=== PATIENT | male | born 1975 | race Hispanic/Latino ===

== ENCOUNTER 2022-07-29 10:30 | Emergency (ER) | payer BC, OTHER ==
--- NOTE | 2022-07-29 11:40 | RAD REPORT ---
EXAM DESCRIPTION: RAD - Chest Single View - 07/29/2022 11:34 am CLINICAL HISTORY: wt loss COMPARISON: No comparisons FINDINGS: Lines: None. Lungs: No evidence of edema or pneumonia. Pleural: No significant pleural effusions or pneumothorax. Cardiac: The heart size is within normal limits. Mediastinum: Within normal limits. Bones: No acute fractures. Other: None IMPRESSION: No acute cardiopulmonary disease.
[2022-07-29 11:57] LABS: Absolute Lymphocytes (CBC) 2.2 K/uL (0.7-4.9); Hematocrit 43.2 % (39.6-49.0); Lymphocytes % 30.2 % (15.3-44.8)
[2022-07-29 11:58] LABS: Protime INR 1.05
[2022-07-29 12:20] LABS: Albumin 4.1 g/dL (3.4-5.0); Bilirubin Direct 0.2 mg/dL (0-0.2); Bilirubin Indirect, Calculated 0.4 mg/dL (0.2-0.8); Bilirubin Total 0.6 mg/dL (0.2-1.0); Magnesium 2.1 mg/dL (1.6-2.4); Potassium 4.1 mEq/L (3.5-5.1); Protein, Total 8.5 g/dL (6.4-8.2); Thyroid Stimulating Hormone 1.3 uIU/mL (0.358-3.740); Troponin High Sensitivity 5.4 pg/mL (<58.9)
[2022-07-29] MEDS ORDERED: ASPIRIN 81 MG CHEWABLE TABLET ONE (12:23)
[2022-07-29] MEDS ORDERED: DIAZEPAM 5 MG TABLET ONE (12:23)
--- NOTE | 2022-07-29 14:14 | RAD REPORT ---
EXAM DESCRIPTION: CT - Head Brain Wo Cont - 07/29/2022 1:31 pm CLINICAL HISTORY: MENTAL STATUS CHANGE COMPARISON: No comparisons TECHNIQUE: Noncontrast head CT images ad were obtained without IV contrast. Multiplanar reformats we re generated and reviewed. All CT scans are performed using dose optimization technique as appropriate and may include automated exposure control or mA/KV adjustment according to patient size. FINDINGS: No intracranial hemorrhage, mass, or edema. Midline structures are unremarkable. Normal ventricular caliber for age. Whittington-white matter differentiation is preserved, without evidence of acute infarct. No abnormal extra- axial fluid collections. Mastoid air cells and visualized portions of the paranasal sinuses are clear. No acute bony findings. IMPRESSION: No evidence of an acute intracranial process.
--- NOTE | 2022-07-29 14:25 | ER ---
Nurse's Notes [facility] Name: Eduardo Quevedo Jr Age: 47 yrs Sex: Male : 1975 Arrival Date: 07/29/2022 Time: 10:30 Bed 14 Private MD: Sylvester Dorsey W Diagnosis: Adjustment disorder with mixed anxiety and depressed mood Presentation: 07/29 10:44 Chief complaint: Brother states "he's been having a lot of panic attacks this month mb9 since the anniversary of his sons . He can't focus on anything right now and he's loopey. He hasn't been sleeping and barley eats. He has a high stress job and we think everything hit him at once.". Coronavirus screen: Vaccine status:. Coronavirus screen: Vaccine status: Patient reports receiving the 2nd dose of the covid vaccine. Ebola Screen: No symptoms or risks identified at this time. Initial Sepsis Screen: Does the patient meet any 2 criteria? No. Patient's initial sepsis screen is negative. Does the patient have a suspected source of infection? No. Patient's initial sepsis screen is negative. Risk Assessment: Do you want to hurt yourself or someone else? Patient reports no desire to harm self or others. Onset of symptoms was July 29, 2022. 10:44 Method Of Arrival: Ambulatory [facility] 10:44 Acuity: DAHIANA 3 mb9 Triage Assessment: 10:50 General: Appears in no apparent distress. Behavior is flat. Pain: Denies pain. Neuro: mb9 Level of Consciousness is awake, alert, obeys commands, Oriented to person, place, time, situation, Appropriate for age Speech is normal. Respiratory: Airway is patent Respiratory effort is even, unlabored, Respiratory pattern is regular, symmetrical. Derm: Skin is pink, warm \\T\\ dry. Musculoskeletal: Range of motion: intact in all extremities. Historical: - Allergies: 10:47 No Known Allergies; mb9 - Home Meds: 10:47 Metformin Oral [Active]; mb9 - PMHx: 10:47 Diabetes mellitus; mb9 - PSHx: 10:47 None; mb9 - Immunization history:: Adult Immunizations up to date. - Social history:: Smoking status: Patient denies any tobacco usage or history of. Screenin:34 [facility] ED Fall Risk Assessment (Adult) History of falling in the last 3 months, db including since admission No falls in past 3 months (0 pts). [facility] ED Fall Risk Assessment (Adult) Confusion or Disorientation Yes (5 pts) Intoxicated or Sedated No (0 pts) Impaired Gait No (0 pts) Mobility Assist Device Used No (0 pt) Altered Elimination No (0 pt) Score/Fall Risk Level 3 or more points = High Risk Oriented to surroundings, Maintained a safe environment, Educated pt \\T\\ family on fall prevention, incl call for assistance when getting out of bed. Abuse screen: Denies threats or abuse. Denies injuries from another. Nutritional screening: No deficits noted. Tuberculosis screening: No symptoms or risk factors identified. Assessment: 10:48 Reassessment: Pt denies any suicidal ideations or wanting to harm others. mb9 12:00 Reassessment: Patient appears in no apparent distress at this time. Patient and/or db family updated on plan of care and expected duration. Pain level reassessed. Patient is alert, oriented x 3, equal unlabored respirations, skin warm/dry/pink. 13:00 Reassessment: Patient appears in no apparent distress at this time. Patient and/or db family updated on plan of care and expected duration. Pain level reassessed. Patient is alert, oriented x 3, equal unlabored respirations, skin warm/dry/pink. 14:11 Reassessment: Patient appears in no apparent distress at this time. Patient and/or db family updated on plan of care and expected duration. Pain level reassessed. Patient is alert, oriented x 3, equal unlabored respirations, skin warm/dry/pink. Reassessment: PATIENT AMBULATORY TO RESTROOM. General: Appears in no apparent distress. comfortable, Behavior is calm, cooperative. Neuro: Level of Consciousness is awake, alert, obeys commands, Oriented to person, place, time. Respiratory: Airway is patent Respiratory effort is even, unlabored. 14:54 Reassessment: No changes from previously documented assessment. Patient and/or family db updated on plan of care and expected duration. Pain level reassessed. Patient is alert, oriented x 3, equal unlabored respirations, skin warm/dry/pink. Patient is alert/active/playful, equal unlabored respirations, skin warm/dry/pink. Patient states symptoms have improved. Vital Signs: 10:44 BP 162 / 103; Pulse 83; Resp 18; Temp 98.4; Pulse Ox 100% ; Weight 95.25 kg; Height 6 mb9 ft. 0 in. ; Pain 0/10; 12:15 BP 156 / 101; Pulse 86; Resp 16; Pulse Ox 99% on R/A; db 13:00 BP 150 / 76; Pulse 75; Resp 16; Pulse Ox 98% on R/A; db 14:00 BP 145 / 97; Pulse 78; Resp 18; Pulse Ox 98% on R/A; db 14:30 BP 144 / 92; Pulse 74; Resp 18; Pulse Ox 98% on R/A; db 10:44 Body Mass Index 28.48 (95.25 kg, 182.88 cm) mb9 10:44 Pain Scale: Adult mb9 Vitals: 12:15 Cardiac Rhythm Assessment Regular Sinus rhythm. db ED Course: 10:33 Patient arrived in ED. im 10:33 Sylvester Dorsey MD is Private Physician. im 10:34 Morena Cantu [facility]-C [facility]. snw 10:34 Alin Delacruz DO is Attending Physician. snw 10:47 Triage completed. mb9 10:48 Arm band placed on. mb9 11:34 XRAY Chest (1 view) In Process Unspecified. EDMS 11:47 Inserted saline lock: 22 gauge in right antecubital area, using aseptic technique. iw Blood collected. 12:07 Shannon Cast, RN is Primary Nurse. db 12:35 Patient has correct armband on for positive identification. Allergy band placed. Bed in db low position. Call light in reach. Side rails up X 1. 13:32 CT Head Brain wo Cont In Process Unspecified. EDMS 14:55 Client placed on continuous cardiac and pulse oximetry monitoring. NIBP monitoring db applied. Warm blanket given. 14:55 No provider procedures requiring assistance completed. IV discontinued, intact, db bleeding controlled, No redness/swelling at site. Administered Medications: 12:26 Drug: Aspirin PO Chewable Tablet 324 mg Route: PO; db 14:30 Follow up: Response: No adverse reaction db 14:57 Follow up: Response: No adverse reaction db 12:26 Drug: Diazepam PO 10 mg Route: PO; db 14:57 Follow up: Response: No adverse reaction db Medication: 10:50 VIS not applicable for this client. mb9 Outcome: 14:24 Discharge ordered by . heriberto 14:55 Discharged to home ambulatory, with family. db 14:55 Condition: stable 14:55 Discharge instructions given to patient, family, Instructed on discharge instructions, Prescriptions given X 1. 14:57 Patient left the ED. db Signatures: Dispatcher [employer] EDMS Morena Cantu, QUARRYING SPECIALIST-C QUARRYING SPECIALIST-Csnw Rosana Small RN RN iw Shannon Cast RN RN db Breneman, Mary Beth, RN RN mb9 Susannah Desir Corrections: (The following items were deleted from the chart) 10:48 10:47 Home Meds: Glimepiride Oral; mb9 mb9 10:49 10:44 Chief complaint: Brother states "he's been having a lot of panic attacks this mb9 month since his son pass away this month. He can't focus on anything right now and he's loopey. He hasn't been sleeping and barley eats" mb9
--- NOTE | 2022-07-29 14:26 | EDPHYS ---
Physician Documentation [facility] Name: Eduardo Quevedo Jr Age: 47 yrs Sex: Male : 1975 Arrival Date: 07/29/2022 Time: 10:30 Bed 14 Private MD: Sylvester Dorsey W ED Physician Alin Delacruz HPI: 07/29 10:56 This 47 yrs old Male presents to ER via Ambulatory with complaints of Anxiety. snw 10:56 The patient presents to the emergency department with depression, pt's Son many snw years ago the day after Father's Day. Pt has had multiple coworkers with poor outcomes of chronic disease recently. Pt is anxious, unable to sleep, distracted, and sad. Onset: The symptoms/episode began/occurred acutely. Past psychiatric history: none. Associated signs and symptoms: Pertinent positives; anxiety, depression, insomnia. not to this degree. The patient has not recently seen a physician. Historical: - Allergies: 10:47 No Known Allergies; mb9 - Home Meds: 10:47 Metformin Oral [Active]; mb9 - PMHx: 10:47 Diabetes mellitus; mb9 - PSHx: 10:47 None; mb9 - Immunization history:: Adult Immunizations up to date. - Social history:: Smoking status: Patient denies any tobacco usage or history of. ROS: 10:54 Eyes: Negative for injury, pain, redness, and discharge, ENT: Negative for injury, snw pain, and discharge, Neck: Negative for injury, pain, and swelling, Cardiovascular: Negative for chest pain, palpitations, and edema, Respiratory: Negative for shortness of breath, cough, wheezing, and pleuritic chest pain, Back: Negative for injury and pain, : Negative for injury, bleeding, discharge, and swelling, MS/Extremity: Negative for injury and deformity, Skin: Negative for injury, rash, and discoloration, Neuro: Negative for headache, weakness, numbness, tingling, and seizure. 10:54 Constitutional: Positive for malaise, poor PO intake, weight loss, insomnia, distracted, panicky, sad. 10:54 Abdomen/GI: Positive for weight loss. 10:54 Psych: Positive for anxiety, depression. Exam: 10:53 Constitutional: This is a well developed, well nourished patient who is awake, alert, snw but is sad Head/Face: Normocephalic, atraumatic. Eyes: Pupils equal round and reactive to light, extra-ocular motions intact. Lids and lashes normal. Conjunctiva and sclera are non-icteric and not injected. Cornea within normal limits. Periorbital areas with no swelling, redness, or edema. ENT: Nares patent. No nasal discharge, no septal abnormalities noted. Tympanic membranes are normal and external auditory canals are clear. Oropharynx with no redness, swelling, or masses, exudates, or evidence of obstruction, uvula midline. Mucous membranes moist. Neck: Trachea midline, no thyromegaly or masses palpated, and no cervical lymphadenopathy. Supple, full range of motion without nuchal rigidity, or vertebral point tenderness. No Meningismus. Chest/axilla: Normal chest wall appearance and motion. Nontender with no deformity. No lesions are appreciated. Cardiovascular: Regular rate and rhythm with a normal S1 and S2. No gallops, murmurs, or rubs. Normal PMI, no JVD. No pulse deficits. Respiratory: Lungs have equal breath sounds bilaterally, clear to auscultation and percussion. No rales, rhonchi or wheezes noted. No increased work of breathing, no retractions or nasal flaring. Abdomen/GI: Soft, non-tender, with normal bowel sounds. No distension or tympany. No guarding or rebound. No evidence of tenderness throughout. Back: No spinal tenderness. No costovertebral tenderness. Full range of motion. Skin: Warm, dry with normal turgor. Normal color with no rashes, no lesions, and no evidence of cellulitis. MS/ Extremity: Pulses equal, no cyanosis. Neurovascular intact. Full, normal range of motion. Neuro: Awake and alert, GCS 15, oriented to person, place, time, and situation. Cranial nerves II-XII grossly intact. Motor strength 5/5 in all extremities. Sensory grossly intact. Cerebellar exam normal. Normal gait. 10:53 Psych: Behavior/mood is pleasant, cooperative, depressed, Affect is flat, Oriented to person, place, time. Vital Signs: 10:44 BP 162 / 103; Pulse 83; Resp 18; Temp 98.4; Pulse Ox 100% ; Weight 95.25 kg; Height 6 mb9 ft. 0 in. ; Pain 0/10; 12:15 BP 156 / 101; Pulse 86; Resp 16; Pulse Ox 99% on R/A; db 13:00 BP 150 / 76; Pulse 75; Resp 16; Pulse Ox 98% on R/A; db 14:00 BP 145 / 97; Pulse 78; Resp 18; Pulse Ox 98% on R/A; db 14:30 BP 144 / 92; Pulse 74; Resp 18; Pulse Ox 98% on R/A; db 10:44 Body Mass Index 28.48 (95.25 kg, 182.88 cm) mb9 10:44 Pain Scale: Adult mb9 MDM: 10:42 Patient medically screened. snw 13:32 Counseling: I had a detailed discussion with the patient and/or guardian regarding: the snw historical points, exam findings, and any diagnostic results supporting the discharge/admit diagnosis, lab results, the need for outpatient follow up, to return to the emergency department if symptoms worsen or persist or if there are any questions or concerns that arise at home. ED course: Pt's Brother concerned for stroke, will CT pt's head. Discussed grief making One sick. Pt receptive. Family will monitor any medications pt might be discharged with for sleep.. 14:23 Differential diagnosis: depression, endocrine dysfunction. Data reviewed: vital signs, snw nurses notes, lab test result(s), EKG, radiologic studies. I considered the following discharge prescriptions or medication management in the emergency department Medications were administered in the Emergency Department. See MAR. Historians other than the Patient: Family Member: Brother and Spouse. Care significantly affected by the following chronic conditions: Diabetes. Response to treatment: the patient's symptoms have mildly improved after treatment. Special discussion: I have referred the patient to see his PCP for further evaluation of high blood pressure. Based on the history and exam findings, there is no indication for further emergent testing or inpatient evaluation. I discussed with the patient/guardian the need to see the psychiatrist for further evaluation of the symptoms. 07/29 10:53 Order name: Basic Metabolic Panel; Complete Time: 12:23 snw 07/29 10:53 Order name: CBC with Diff; Complete Time: 12:19 snw 07/29 10:53 Order name: LFT's; Complete Time: 12:23 snw 07/29 10:53 Order name: Magnesium; Complete Time: 12:23 snw 07/29 10:53 Order name: NT PRO-BNP; Complete Time: 12:23 snw 07/29 10:53 Order name: PT-INR; Complete Time: 12:19 snw 07/29 10:53 Order name: Troponin HS; Complete Time: 12:23 snw 07/29 10:53 Order name: TSH; Complete Time: 12:23 snw 07/29 10:53 Order name: XRAY Chest (1 view); Complete Time: 11:49 snw 07/29 13:20 Order name: CT Head Brain wo Cont; Complete Time: 14:17 snw 07/29 10:53 Order name: EKG; Complete Time: 10:53 snw 07/29 10:53 Order name: Cardiac monitoring; Complete Time: 12:33 snw 07/29 10:53 Order name: EKG - Nurse/Tech; Complete Time: 12:33 snw 07/29 10:53 Order name: IV Saline Lock; Complete Time: 11:48 snw 07/29 10:53 Order name: Labs collected and sent; Complete Time: 11:48 snw 07/29 10:53 Order name: O2 Per Protocol; Complete Time: 12:33 snw 07/29 10:53 Order name: O2 Sat Monitoring; Complete Time: 12:33 snw EC:30 Rate is 75 beats/min. Rhythm is regular. QRS Dolores is Normal. KS interval is normal. QRS snw interval is normal. QT interval is normal. Clinical impression: NSR w/ Non-specific ST/T Changes. Administered Medications: 12:26 Drug: Aspirin PO Chewable Tablet 324 mg Route: PO; db 14:30 Follow up: Response: No adverse reaction db 14:57 Follow up: Response: No adverse reaction db 12:26 Drug: Diazepam PO 10 mg Route: PO; db 14:57 Follow up: Response: No adverse reaction db Disposition: 17:41 Co-signature as Attending Physician, Alin LANDAVERDE was immediately available on-site ms3 in the Emergency Department for consultation in the care of the patient. Disposition Summary: 07/29/22 14:24 Discharge Ordered Location: Home snw Condition: Stable snw Diagnosis - Adjustment disorder with mixed anxiety and depressed mood snw Followup: snw - With: Emergency Department - When: As needed - Reason: Worsening of condition Followup: snw - With: Private Physician - When: 2 - 3 days - Reason: Recheck today's complaints, Continuance of care, Re-evaluation by your physician Discharge Instructions: - Discharge Summary Sheet snw - Adjustment Disorder, Adult snw - Complicated Grief snw - Supporting Someone With Depression snw - Managing Depression, Adult snw - Supporting Someone With Anxiety snw Forms: - Medication Reconciliation Form snw - Thank You Letter snw - Antibiotic Education snw - Prescription Opioid Use snw Prescriptions: - trazodone 50 mg Oral tablet - take 1 tablet by ORAL route every day at bedtime as needed for insomnia; 30 snw tablet; Refills: 0, Product Selection Permitted Signatures: Dispatcher [employer] EDMorena Oliver FNP-C FNP-Alin Holbrook DO DO ms3 Shannon Cast, RN RN Gabby Sarkar RN RN mb9 Corrections: (The following items were deleted from the chart) 10:48 10:47 Home Meds: Glimepiride Oral; mb9 mb9
[2022-07-29 15:11] VITALS: TEMP 98.4
[2022-07-29 15:23] VITALS: O2SAT 98
[2022-07-29 15:25] VITALS: BP 144/92
--- NOTE | 2022-07-30 13:48 | EKG ---
Test Date: 2022-07-29 Test Time: 12:25:01 [employer] Melter: GIANNA MEASUREMENT RESULTS: Intervals: Rate: 75 MA: 134 QRSD: 100 QT: 366 QTc: 408 [place]: P: 58 MA: 134 QRS: -38 T: 46 INTERPRETIVE STATEMENTS: Normal sinus rhythm Left axis deviation Abnormal ECG No previous ECG available for comparison Electronically Signed On 07-30-22 13:46:36 CDT by Gio Campbell
== END 2022-07-29 14:57 | disposition home or self-care (01) ==
LOC: ER 10:30
DX: F43.23 Adjustment disorder with mixed anxiety and depressed mood (principal); E11.9 Type 2 diabetes mellitus without complications
CPT/HCPCS: 36415; 70450; 71045; 80048; 80076; 83735; 83880; 84443; 84484; 85025; 85610; 93005; 99284

== ENCOUNTER 2022-07-31 11:16 | Emergency (ER) | payer BC ==
--- NOTE | 2022-07-31 12:08 | RAD REPORT ---
EXAM DESCRIPTION: CT - Head Brain Wo Cont - 07/31/2022 12:00 pm CLINICAL HISTORY: CONFUSED COMPARISON: Head Brain Wo Cont dated 07/29/2022 TECHNIQUE: All CT scans are performed using dose optimization technique as appropriate and may inclu de automated exposure control or mA/KV adjustment according to patient size. FINDINGS: No intracranial hemorrhage, hydrocephalus or extra-axial fluid collection.No areas of brai n edema or evidence of midline shift. The paranasal sinuses and mastoids are clear. The calvarium is intact. IMPRESSION: No acute intracranial abnormality.
[2022-07-31 12:45] LABS: Absolute Lymphocytes (CBC) 1.6 K/uL (0.7-4.9); Hematocrit 41.7 % (39.6-49.0); Lymphocytes % 28.3 % (15.3-44.8); MCV 87.1 fL (80-100); MPV 7.9 fL (7.6-11.3); RBC Red Blood Cell Count 4.79 M/uL (4.33-5.43)
[2022-07-31 12:54] LABS: Protime INR 1.03
[2022-07-31 13:13] LABS: ALT/SGPT 120 U/L (16-61); AST/SGOT 35 U/L (15-37); Albumin 3.9 g/dL (3.4-5.0); Alkaline Phosphatase 74 U/L (45-117); BUN Blood Urea Nitrogen 15 mg/dL (7-18); Bicarbonate 28 mEq/L (21-32); Bilirubin Direct 0.1 mg/dL (0-0.2); Bilirubin Indirect, Calculated 0.3 mg/dL (0.2-0.8); Bilirubin Total 0.4 mg/dL (0.2-1.0); Glomerular Filtration Rate 99 ml/min (=/>90); Glucose Level 122 mg/dL (74-106); Potassium 4.3 mEq/L (3.5-5.1); Sodium Level 137 mEq/L (136-145)
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
--- NOTE | 2022-07-31 13:28 | EDPHYS ---
Physician Documentation [facility] Name: Eduardo Quevedo Jr Age: 47 yrs Sex: Male : 1975 Arrival Date: 07/31/2022 Time: 11:16 Bed 14 Private MD: ED Physician Karl Cai HPI: 07/31 11:30 This 47 yrs old Male presents to ER via Unassigned with complaints of bs3 depressed mood, . 11:30 Patient seen several days ago for anxiety and depression brought in by EMS for bs3 worsening of symptoms patient reportedly tried to drown himself in a superficial pool and potentially try to grab his firearm his does not feel safe at this point taking him home there are multiple stressors going on in his life related to anniversaries of deaths as well as a first 's situation history is mostly provided by the patient's at bedside as the patient is not speaking. Historical: - Home Meds: 19:08 metformin 500 mg oral Tablet, Extended Release 24 hr [Active]; kr3 - PMHx: 11:45 diabetes mellitus; kr3 - Immunization history:: Adult Immunizations unknown. - Social history:: Smoking status: unknown. ROS: 11:30 Constitutional: Negative for fever, chills bs3 11:30 All other systems are negative. Exam: 11:30 Constitutional: This is a well developed, well nourished patient who is awake, alert, bs3 and in no acute distress. Head/Face: Normocephalic, atraumatic. Eyes: Pupils equal round and reactive to light, extra-ocular motions intact. Lids and lashes normal. ENT: mmm, no posterior phyarngeal erythema Neck: Trachea midline, no thyromegaly, no neck stiffness Chest/axilla: Normal chest wall appearance and motion. Nontender with no deformity. No lesions are appreciated. Cardiovascular: Regular rate and rhythm with a normal S1 and S2. symmetric pulses in upper extremities Respiratory: Lungs have equal breath sounds bilaterally, clear to auscultation, no respiratory distress Abdomen/GI: Soft, non-tender, no rebound or guarding MS/ Extremity: Pulses equal, no cyanosis. Neurovascular intact. Full, normal range of motion. Neuro: Awake and alert, GCS 15, oriented to person, place, time, and situation. Cranial nerves II-XII grossly intact. Motor strength 5/5 in all extremities. Sensory grossly intact. Psych: Paucity of speech, depressed mood Vital Signs: 11:45 BP 158 / 98; Pulse 77; Resp 18; Pulse Ox 100% on R/A; kr3 13:30 BP 168 / 78; Pulse 77; Resp 18; Pulse Ox 99% on R/A; kr3 MDM: 11:17 Patient medically screened. bs3 11:30 Differential diagnosis: acute psychotic break, depression, psychosis secondary to bs3 non-compliance. Data reviewed: vital signs, nurses notes. ED course: We will check labs will get CT brain given no history although he has multiple risk factors for depression given his potential attempt in a shallow pool and potentially trying to grab a gun he is not safe to be discharged home. 13:26 ED course: Patient is insured he is willing to go voluntarily discussed with family at bs3 bedside admitted given lack of capacity here to take care of psychiatric patients to Dr. Sadler. 07/31 11:19 Order name: Acetaminophen [facility] 07/31 11:19 Order name: Basic Metabolic Panel [facility] 07/31 11:19 Order name: CBC with Diff 3 07/31 11:19 Order name: ETOH Level [facility] 07/31 11:19 Order name: Hepatic Function [facility] 07/31 11:19 Order name: PT-INR [facility] 07/31 11:19 Order name: Ptt, Activated [facility] 07/31 11:19 Order name: Salicylate [facility] 07/31 11:19 Order name: Urine Drug Screen [facility] 07/31 11:29 Order name: CT Head Brain wo Cont; Complete Time: 12:09 [facility] 07/31 11:19 Order name: EKG; Complete Time: 11:19 3 07/31 11:19 Order name: EKG - Nurse/Tech; Complete Time: 12:39 3 07/31 11:19 Order name: IV Saline Lock; Complete Time: 12:39 3 07/31 11:19 Order name: Labs collected and sent; Complete Time: 12:39 3 07/31 11:19 Order name: Suicide Screening ([place]) bs3 Administered Medications: No medications were administered Disposition Summary: 07/31/22 13:27 Transfer Ordered Transfer Location: Psych Facility bs3 Reason: Higher level of care bs3 Condition: Fair bs3 Problem: new bs3 Symptoms: are unchanged bs3 Accepting Physician: seng(07/31/22 14:03) eh3 Diagnosis - Major depressive disorder, single episode, moderate bs3 Forms: - Medication Reconciliation Form bs3 - SBAR form bs3 Signatures: Dispatcher [employer] Lupis Rao RN RN eh3 Ann Gregory RN RN kr3 Karl Cai MD MD bs3 Corrections: (The following items were deleted from the chart) 14:03 13:27 seng bs3 eh3
[2022-07-31 13:47] LABS: Barbiturates NEGATIVE (NEGATIVE); Benzodiazepines POSITIVE (NEGATIVE); Cocaine NEGATIVE (NEGATIVE); METHAMPHETAM NEGATIVE (NEGATIVE); Methadone NEGATIVE (NEGATIVE); Opiates NEGATIVE (NEGATIVE); Phencyclidine NEGATIVE (NEGATIVE); THC Cannibis NEGATIVE (NEGATIVE)
[2022-07-31 14:07] VITALS: BP 158/98; O2SAT 100
--- NOTE | 2022-08-01 14:19 | EKG ---
Test Date: 2022-07-31 Test Time: 12:36:46 [employer]: [id number] MEASUREMENT RESULTS: Intervals: Rate: 83 KS: 130 QRSD: 94 QT: 356 QTc: 418 [place]: P: 84 KS: 130 QRS: -58 T: 82 INTERPRETIVE STATEMENTS: Normal sinus rhythm Left axis deviation Abnormal ECG Compared to ECG 07/29/2022 12:25:01 No significant changes Electronically Signed On 08-01-22 14:17:10 CDT by Gio Campbell
== END 2022-07-31 14:03 ==
LOC: ER 11:16
DX: F32.1 Major depressive disorder, single episode, moderate (principal); E11.9 Type 2 diabetes mellitus without complications
CPT/HCPCS: 36415; 70450; 80048; 80076; 80143; 80179; 80307; 82077; 85025; 85610; 85730; 93005; 99285